=== PATIENT | male | born 1980 | race Caucasian/White ===

== ENCOUNTER 2019-10-29 07:53 | Emergency (ER) | payer SELFPAY ==
[2019-10-29 09:33] LABS: ABSOLUTE BASOPHILS # (AUTO) 0.1 10^3/uL (0.0-0.2); ABSOLUTE EOSINOPHILS # (AUTO) 0.3 10^3/uL (0.0-0.6); ABSOLUTE LYMPHOCYTES (AUTO) 1.7 10^3/uL (0.5-4.7); ABSOLUTE MONOCYTES (AUTO) 0.8 10^3/uL (0.1-1.4); ABSOLUTE NEUT (AUTO) 8.8 10^3/uL (1.7-8.2); BASOPHILS % (AUTO) 0.4 % (0-2); EOSINOPHILS % (AUTO) 2.6 % (0-6); HEMATOCRIT 41.3 % (37.9-51.0); HEMOGLOBIN 13.5 g/dL (13.5-17.0); LYMPHOCYTES % (AUTO) 14.9 % (13-45); MEAN CORPUSCULAR HEMOGLOBIN 26.6 pg (27.0-33.4); MEAN CORPUSCULAR HGB CONC 32.8 g/dL (32.0-36.0); MEAN CORPUSCULAR VOLUME 81 fl (80-97); MONOCYTES % (AUTO) 7.2 % (3-13); PLATELET COUNT 281 10^3/uL (150-450); RED BLOOD COUNT 5.09 10^6/uL (4.35-5.55); RED CELL DISTRIBUTION WIDTH 13.3 % (11.5-14.0); SEGMENTED NEUTROPHILS % (AUTO) 74.9 % (42-78); TOTAL CELLS COUNTED % (AUTO) 100 %; WHITE BLOOD COUNT 11.7 10^3/uL (4.0-10.5)
[2019-10-29 09:51] LABS: ALBUMIN 4.1 g/dL (3.5-5.0); ALKALINE PHOSPHATASE 95 U/L (38-126); ANION GAP 10 (5-19); ASPARTATE AMINO TRANSFERASE 47 U/L (17-59); BILIRUBIN,TOTAL 0.5 mg/dL (0.2-1.3); BLOOD UREA NITROGEN 15 mg/dL (7-20); CALCIUM 9.4 mg/dL (8.4-10.2); CARBON DIOXIDE 25 mmol/L (22-30); CHLORIDE 102 mmol/L (98-107); GLUCOSE 141 mg/dL (75-110); POTASSIUM 4.1 mmol/L (3.6-5.0); TOTAL PROTEIN 7.5 g/dL (6.3-8.2)
[2019-10-29] MEDS ORDERED: LIDOCAINE 1% INJ-PF (10 MG/ML) 30 ML SDV INJ ONE (10:30)
--- NOTE | 2019-10-29 10:30 | ER Document Report ---
Entered by BRIGHT GARDNER SCRIBE 10/29/19 1003 Acting as scribe for:DEEDEE SQUIRES MD ED Skin Rash/Insect Bite/Abscs - General Chief Complaint: Skin Problem Stated Complaint: RASH Time Seen by Provider: 10/29/19 09:53 Mode of Arrival: Ambulatory Information source: Patient Notes: This 39-year-old male patient presents to the emergency department today with complaints of an abscess to the right forearm. Patient states he believes this area started as ingrown hair 4 days ago. Patient states there was a small melgar and he popped it 4 days ago and it has progressed significantly since then. TRAVEL OUTSIDE OF THE [place] IN LAST 30 DAYS: No - Related Data Allergies/Adverse Reactions: No Known Allergies Allergy (Unverified 10/29/19 08:17) Past Medical History - General Information source: Patient - Social History Smoking Status: Never Smoker Cigarette use (# per day): No Chew tobacco use (# tins/day): No Frequency of alcohol use: None Drug Abuse: None Occupation: [employer] Lives with: Family Family History: Reviewed & Not Pertinent - Medical History Medical History: Negative Surgical Hx: Negative Review of Systems - Review of Systems Constitutional: No symptoms reported EENT: No symptoms reported Cardiovascular: No symptoms reported Respiratory: No symptoms reported Gastrointestinal: No symptoms reported Genitourinary: No symptoms reported Male Genitourinary: No symptoms reported Musculoskeletal: No symptoms reported Skin: See HPI, Lesions, Other - right forearm Hematologic/Lymphatic: No symptoms reported Neurological/Psychological: No symptoms reported -: Yes All other systems reviewed and negative Physical Exam - Vital signs Vitals: Temp Pulse Resp BP Pulse Ox 97.7 F 101 H 18 151/100 H 96 10/29/19 07:58 10/29/19 07:58 10/29/19 07:58 10/29/19 07:58 10/29/19 07:58 - General General appearance: Appears well, Alert - HEENT Head: Normocephalic, Atraumatic Eyes: Normal Pupils: PERRL - Respiratory Respiratory status: No respiratory distress - Cardiovascular Rhythm: Regular - Abdominal Inspection: Normal - Back Back: Normal - Extremities General upper extremity: Other - The right dorsal forearm and the proximal third region has a large pointing abscess with some drainage. There is surrounding erythema and induration which is quite tender. The erythema travels up just above the elbow. General lower extremity: Normal inspection - Neurological Neuro grossly intact: Yes - Psychological Associated symptoms: Normal affect, Normal mood - Skin Skin Temperature: Warm Skin Moisture: Dry Skin Color: Normal Course - Re-evaluation Re-evalutation: 10/29/19 12:14 PROCEDURE: The right forearm skin was prepped with Shur-Clens. The wound was anesthetized with 12 mL's of 1% lidocaine. The wound was initially spread with a mosquito clamp letting out necrotic fat, and when pressure was placed on the wound pus began oozing out. The wound was enlarged with a longitudinal incision using a #11 blade. The wound was again compressed to squeeze out as much pus as possible. Next the wound was irrigated with normal saline via syringe using at least 100 mL's of normal saline. The patient had been given an IV dose of morphine due to the amount of discomfort deep in the forearm as the wound did explore down at least 2 cm deep and mostly going proximally. The wound was then packed with half-inch iodoform gauze and a sterile bandage was applied. The patient's abscess in his dorsal right forearm is quite large with extensive cellulitis around it. His white count is not very high. We did discuss admission versus outpatient treatment, and he elected to try outpatient. He will be discharged home with instructions to elevate his arm above his heart all the time. He will be put on Percocet for pain and clindamycin for infection. He is to return to the emergency room tomorrow morning and I will recheck his arm, and at that time decide if he can continue outpatient management. - Vital Signs Vital signs: Temp Pulse Resp BP Pulse Ox 98.1 F 95 18 134/95 H 95 10/29/19 12:36 10/29/19 12:36 10/29/19 12:36 10/29/19 12:36 10/29/19 12:36 - Laboratory Result Diagrams: 10/29/19 09:13 10/29/19 09:13 Laboratory results interpreted by me: 10/29/19 10/29/19 09:13 09:13 WBC 11.7 H MCH 26.6 L Absolute Neuts (auto) 8.8 H Sodium 136.7 L Glucose 141 H ALT 76 H Discharge - Discharge Clinical Impression: Abscess of right forearm Cellulitis Qualifiers: Site of cellulitis: extremity Site of cellulitis of extremity: upper extremity Laterality: right Qualified Code(s): L03.113 - Cellulitis of right upper limb Condition: Stable Disposition: HOME, SELF-CARE Additional Instructions: Abscess You have an abscess (boil). This a pus-forming infection, usually due to staph. Some boils may be left to drain on their own, but most require lancing. From the time the tender lump first appears, it may be three or four days before the abscess is ready to barb. Local heat and rest help at this stage of treatment. An antibiotic may prevent spread of the infection. Once the abscess is opened, packing may be placed into it. This is done so pus is not sealed inside by premature closure of the cavity. The packing will be removed at your follow-up visit or you may be advised to remove it yourself at home. Sometimes this packing must be replaced a few times during healing. The wound will heal with surprisingly little scar. Depending on the size and location of an abscess, healing can take one to four weeks. You may shower and wash the area around the incision site two or three times a day. Antibiotics may be prescribed, but are usually not necessary after an abscess has been drained. If you develop fever, chilling, worsening pain, or increasing swelling in the area, call the doctor or return immediately. Elevate your arm above your heart as much as possible. Take medications as prescribed. Return to the emergency room tomorrow morning around 9 AM to recheck the arm. RETURN TO THE EMERGENCY ROOM IF ANY NEW OR WORSENING SYMPTOMS. Prescriptions: Clindamycin HCl 300 mg PO QID #28 capsule Oxycodone HCl/Acetaminophen [Percocet 5-325 mg Tablet] 1 tab PO ASDIR PRN #15 tablet PRN Reason: I personally performed the services described in the documentation, reviewed and edited the documentation which was dictated to the scribe in my presence, and it accurately records my words and actions.
[2019-10-29] MEDS ORDERED: CLINDAMYCIN 600 MG/D5W RTU 600 MG/50 ML RTUPB IV ONE (10:37)
[2019-10-29] MEDS ORDERED: MORPHINE SULFATE 10 MG/ML INJ IV ONE (11:41)
[2019-10-29] MEDS ORDERED: ONDANSETRON HCL INJ/PF 4 MG/2 ML SDV IV ONE (11:41)
[2019-10-29 12:37] VITALS: BP 134/95
== END 2019-10-29 12:37 | disposition home or self-care (01) ==
LOC: ER 07:53
DX: L02.413 Cutaneous abscess of right upper limb (principal); L03.113 Cellulitis of right upper limb; R21 Rash and other nonspecific skin eruption
CPT/HCPCS: 99283; 96375; 96365; 36415; 87040; 87070; 87205; 85025; 87075; 87077; 80053; J3490; J2270; J2405; 87186